=== PATIENT | female | born 1940 | race Caucasian/White ===

== ENCOUNTER → 2020-02-14 | Outpatient (CLI) | payer OTHER ==
[~2020-02-14] MED LIST: AMLODIPINE BESYL5 MG PO; ARIMIDEX PO; ASPIRIN EC81 M1 PO; CALCIUM 600 +1 EAC1 PO; CENTRUM SILVER1 EAC4 PO; COLACE100 MG PO; DITROPAN XL10 MG PO; FERRO-TIME325 MG PO; GLUCOSAMINE-CH1 EA33 PO; HYDROCHLOROTHIA25 M1 PO; HYDROCODON-ACE1 EAC5 PO; IRON159 MG PO; MELOXICAM7.5 MG PO; MIRALAX255 GM PO; PRILOSEC 20 MG20 MG OR; RANITIDINE 150150 MG PO; THERA-M CAPLET1 EACH PO; VITAMIN D32000 UNI1 PO; ZOCOR 20 MG TAB20 M1 PO
== END ==
LOC: CAT 10:23
PROVIDERS: ATTEND Obstetrics & Gynecology
DX: Z13.6 Encounter for screening for cardiovascular disorders (principal); I25.10 Atherosclerotic heart disease of native coronary artery without angina pectoris; E78.00 Pure hypercholesterolemia, unspecified

== ENCOUNTER → 2020-03-27 | Outpatient (CLI) | payer OTHER | LOC: SJCVCIMAG 09:09 → SJCVC 09:09 | PROVIDERS: ATTEND Internal Medicine Cardiovascular Disease | DX: I08.1 Rheumatic disorders of both mitral and tricuspid valves (principal); R94.31 Abnormal electrocardiogram [ECG] [EKG]; I49.3 Ventricular premature depolarization; E78.00 Pure hypercholesterolemia, unspecified; I25.10 Atherosclerotic heart disease of native coronary artery without angina pectoris; I10 Essential (primary) hypertension; Z79.82 Long term (current) use of aspirin; Z79.899 Other long term (current) drug therapy ==